=== PATIENT | male | born 1965 | race Caucasian/White ===

== ENCOUNTER 2020-09-19 22:02 | Inpatient (IN) | payer OTHER, SELFPAY ==
--- NOTE | ~2020-09-19 | CT_ITS ---
EXAMINATION: CTA chest PE protocol DATE: 09/20/2020 00:27 INDICATION: Chest pain and shortness of breath TECHNIQUE: Computed tomography angiography (CTA) of the chest was performed with 100 mL Omnipaque-350 intravenous contrast timed to evaluate the pulmonary arteries. Coronal maximum intensity projection 3D-reconstructions were created by the technologist. The dose-length product (DLP) was 449.55 mGy-cm. Automated exposure control and iterative reconstruction technique were employed. COMPARISON: None. FINDINGS: The pulmonary arteries are well-opacified. No pulmonary embolism is identified. Cardiomegal y is noted. There is smooth interlobular septal thickening in the lung bases. There are groundglass o pacities in the mid and lower lung zones. Trace right pleural effusion is present. There is no pneumo thorax. There are no pathologically enlarged thoracic lymph nodes. There is a 6 mm subpleural nodule in the left lower lobe on image 64. There is mild thoracic spondylosis. IMPRESSION: 1. Cardiomegaly with mild pulmonary edema. 2. 6 mm nodule of the left lower lobe, likely old granulomatous disease. Recommend follow-up CT in 6- 12 months. Reviewed, dictated and finalized at location A. IMPRESSION: 1. Cardiomegaly with mild pulmonary edema. 2. 6 mm nodule of the left lower lobe, likely old granulomatous disease. Recomm end follow-up CT in 6-12 months.
--- NOTE | ~2020-09-19 | XR_ITS ---
EXAMINATION: XR chest 1V portable INDICATION: Chest pain and shortness of breath TECHNIQUE: Portable AP chest at 2300 hours COMPARISON: 12/22/2017 FINDINGS: Cardiomegaly is noted. There are diffuse opacities throughout all lung zones. No pleural ef fusion or pneumothorax is identified. The visualized osseous structures are unremarkable. IMPRESSION: 1. Diffuse lung disease which could reflect pulmonary edema and/or pneumonia. 2. Cardiomegaly. Reviewed, dictated and finalized at location A.
[2020-09-19 22:06] VITALS: BP 112/82; PULSE 110; RESP 18; TEMP 37.1; O2SAT 100
--- NOTE | 2020-09-19 22:19 | ECG_ITS ---
Measurements Intervals [place] Rate: 106 P: 64 CA: 178 QRS: 67 QRSD: 98 T: 190 QT: 371 QTc: 495 Interpretive Statements SINUS TACHYCARDIA LEFT ATRIAL ENLARGEMENT DELAYED PRECORDIAL R/S TRANSITION T WAVE ABNORMALITY IN ANTEROLATERAL/INF LEADS- CONSIDER ISCHEMIA BASELINE ARTIFACT- II, III, AVR, AVF, V1, V4-V6 ABNORMAL ECG Electronically Signed On 09-20-2020 7:02:30 CDT by Toño Fabian D.O.
--- NOTE | 2020-09-19 22:31 | ED.SOB ---
HPI - SOB/Dyspnea General Chief Complaint: Shortness of Breath/Dyspnea <Uvaldo Good MD - Last Filed: 09/20/20 19:37> Stated Complaint: short of breath <Uvadlo Good MD - Last Filed: 09/20/20 19:37> Time Seen by Provider: 09/19/20 22:13 <Uvaldo Good MD - Last Filed: 09/20/20 19:37> History of Present Illness HPI Narrative: 54 yo male presents to the ED for SOB. He reports that he has been SOB for the past 2 days this is associated with burning pain in his chest. This may have started after he was spraying paint with improperly secured mask. He was previously diagnosed with asthma and had an albuterol inhaler. He has not used an inhaler in years. Additionally he reports nausea and chills 2 days ago, none now. <Uvaldo Good MD - Last Filed: 09/20/20 19:37> Related Data Home Medications: Home Medications Medication Instructions Recorded Confirmed sildenafil 09/20/20 <Uvaldo Good MD - Last Filed: 09/20/20 19:37> Allergies/Adverse Reactions: Allergies Allergy/AdvReac Type Severity Reaction Status Date / Time pollen extracts Allergy Unknown Verified 09/19/20 22:09 <Uvaldo Good MD - Last Filed: 09/20/20 19:37> Review of Systems Review of Systems: All systems reviewed & are unremarkable except as noted in HPI and below <Uvaldo Good MD - Last Filed: 09/20/20 19:37> Constitutional: Constitutional: Reports chills, Reports fatigue and Reports fever(s) <Uvaldo Good MD - Last Filed: 09/20/20 19:37> ENT: Denies dizziness <Uvaldo Good MD - Last Filed: 09/20/20 19:37> Cardiovascular: Cardiovascular: Reports chest pain and Denies radiating jaw, neck or arm pain <Uvaldo Good MD - Last Filed: 09/20/20 19:37> Respiratory: Respiratory: Reports cough and Reports dyspnea <Uvaldo Good MD - Last Filed: 09/20/20 19:37> Gastrointestinal: Gastrointestinal: Denies abdominal pain, Denies nausea and Denies vomiting <Uvaldo Good MD - Last Filed: 09/20/20 19:37> Genitourinary: Genitourinary: Reports no additional male genitourinary complaints <Uvaldo Good MD - Last Filed: 09/20/20 19:37> Musculoskeletal: Musculoskeletal: Denies back pain <Uvaldo Good MD - Last Filed: 09/20/20 19:37> Neurologic: Denies confusion, Denies dizziness and Denies weakness <Uvaldo Good MD - Last Filed: 09/20/20 19:37> [facility] Past Medical History Medical History: Medical History (Updated 09/20/20 @ 19:34 by Uvaldo Good MD) Asthma <Uvaldo Good MD - Last Filed: 09/20/20 19:37> Family History Family History: Family History (Updated 09/20/20 @ 03:28 by Felicia Saenz RN) Mother Brain cancer Cancer of heart Thyroid cancer Lung cancer Colon cancer Smoker Sibling Brain cancer Father Suicide and self-inflicted injury <Uvaldo Good MD - Last Filed: 09/20/20 19:37> Social History Social History: Social History Smoking packs per day: 0.5 Smoking cigarettes per day: 10.0 Smoking status: Current every day smoker Alcohol intake: never Substance use: never Gender identity (if verbalized by the patient): Male Spiritual care concerns: No <Uvaldo Good MD - Last Filed: 09/20/20 19:37> Exam Const: General: no acute distress and alert <Uvaldo Good MD - Last Filed: 09/20/20 19:37> Orientation/consciousness: patient oriented x3 <Uvaldo Good MD - Last Filed: 09/20/20 19:37> HENMT: Head: normal to inspection <Uvaldo Good MD - Last Filed: 09/20/20 19:37> Neck: Neck: normal visual inspection <Uvaldo Good MD - Last Filed: 09/20/20 19:37> Chest: Chest palpation & inspection: normal inspection of the chest and no tenderness <Uvaldo Good MD - Last Filed: 09/20/20 19:37> Resp: Effort & Inspection: normal respiratory effort <Uvaldo Good MD - Last Filed: 09/20/20 19:37> Auscul
[2020-09-19 22:36] VITALS: PULSE 107; RESP 18
[2020-09-19] MEDS: IPRATROPIUM BR 0.02% INH SOLN 0.5 MG/2.5 ML VIAL INHALATION (22:36)
[2020-09-19] MEDS: ALBUTEROL SULFATE NEB 2.5 MG/0.5 ML INH 5 MG INHALATION (22:36)
[2020-09-19 22:37] VITALS: PULSE 101; O2SAT 96
[2020-09-19 22:45] VITALS: PULSE 106; RESP 17
[2020-09-19 22:58] LABS: Basophils Percent Auto 0.3 % (0.2-1.2); Eosinophils Absolute Auto 0.1 K/mm3 (0-0.3); Eosinophils Percent Auto 0.6 % (0-4.4); Hematocrit 34.5 % (42.0-52.0); Hemoglobin 11.3 g/dL (14.0-18.0); Immature Granulocyte Absolute 0.05 K/mm3 (0.00-0.031); Immature Granulocyte Percent A 0.5 % (0-0.5); Lymphocytes Absolute Auto 1.27 K/mm3 (0.9-3.2); Lymphocytes Percent Auto 12.6 % (18.3-44.2); Mean Corpuscular HGB Conc 32.8 g/dl (32-36); Mean Corpuscular Hemoglobin 29.2 pg (26-34); Mean Corpuscular Volume 89.1 fl (80-100); Mean Platelet Volume 10.8 fl (7.4-10.4); Neutrophils Absolute Auto 7.6 K/mm3 (1.3-6.7); Platelet Count Result 182 k/mm3 (150-375); Red Blood Count 3.87 M/mm3 (4.6-6.20); Red Cell Distribution Width 14.6 % (11.5-14.5); White Blood Count 10.1 K/mm3 (4.5-10.0)
[2020-09-19 23:09] LABS: INR 1.1; Partial Thromboplastin Time 30.6 SECONDS (22.3-36.8)
[2020-09-19 23:11] LABS: Alanine Aminotransferase 23 U/L (4-50); Albumin Level 3.4 g/dL (3.5-5.1); Alkaline Phosphatase 62 U/L (38-126); Anion Gap 4 mmol/L (8-16); Aspartate Amino Transferase 21 U/L (17-59); Bilirubin,Total 0.9 mg/dL (0.2-1.3); Blood Urea Nitrogen 20 mg/dL (9-20); Calcium 9.1 mg/dL (8.4-10.2); Carbon Dioxide 28 mmol/L (22-30); Chloride 104 mmol/L (98-107); Estimated Glomerular Filt Rate > 60; Glucose 116 mg/dL (75-110); Potassium 4.1 mmol/L (3.4-5.0); Sodium 136 mmol/L (137-145)
[2020-09-19 23:26] VITALS: BP 109/72; PULSE 106; RESP 15; O2SAT 96
[2020-09-19 23:34] LABS: Troponin I 0.104 ng/mL (0.000-0.034)
[2020-09-20] VITALS (26 sets, daily range): BP systolic 93–120; BP diastolic 59–92; PULSE 98–114; RESP 16–31; TEMP 36.4–37.6; O2SAT 95–100
[2020-09-20] MEDS: ASPIRIN 81 MG CHEWABLE TABLET 324 MG PO
--- NOTE | 2020-09-20 | ECHO_ITS ---
Patient Info Name: Lewis Bonds Age: 54 years : 1965 Gender: Male Ht: 72 in Wt: 206 lbs BSA: 2.20 m2 HR: 104 bpm BP: 94 / 59 mmHg Heart Rhythm: Tachycardia Technical Quality: Good Exam Date: 09/20/2020 1:51 PM Exam Location: [facility] Pulmonary Exam Room: [facility] [place] Patient Status: Inpatient Admit Date: 09/20/2020 Staff Ordering Physician: Ketan Larios MD Administrative Services Officer: Ailyn Connolly RDCS Attending Provider: Ketan Larios MD Exam Type: CA echo doppler color flow Study Info Indications - chest pressure - nstemi cardiomegaly Complete two-dimensional, color flow and Doppler transthoracic echocardiogram is performed. Summary 1. Complete two-dimensional, color flow and Doppler transthoracic echocardiogram is performed. 2. Left ventricular chamber dimension is severely enlarged. 3. Left ventricular systolic function is severely reduced, estimated at 15-20%. 4. There is no increased left ventricular wall thickness. 5. The left ventricular diastolic function is grade III diastolic dysfunction. 6. Right ventricular chamber dimension is mildly enlarged. 7. Right ventricular systolic function is moderately reduced. 8. Left atrial chamber dimension is severely enlarged. 9. Right atrial chamber dimension is severely enlarged. 10. There is moderate mitral valve regurgitation. 11. There is mild tricuspid valve regurgitation. 12. Mild pulmonary hypertension, estimated pulmonary arterial systolic pressure is 44 mmHg. Left Ventricle Left ventricular chamber dimension is severely enlarged. Left ventricular systolic function is severely reduced, estimated at 15-20%. There is no increased left ventricular wall thickness. The left ventricular diastolic function is grade III diastolic dysfunction. Right Ventricle Right ventricular chamber dimension is mildly enlarged. Right ventricular systolic function is moderately reduced. Left Atria Left atrial chamber dimension is severely enlarged. Right Atria Right atrial chamber dimension is severely enlarged. Aortic Valve The aortic valve is probable trileaflet. There is no aortic valve stenosis. There is trace aortic valve regurgitation. Pulmonic Valve The pulmonic valve is not well visualized. There is trace pulmonic regurgitation. Mitral Valve The mitral valve has thickened leaflets. There is moderate mitral valve regurgitation. Tricuspid Valve The tricuspid valve leaflets are normal. There is mild tricuspid valve regurgitation. Mild pulmonary hypertension, estimated pulmonary arterial systolic pressure is 44 mmHg. Pericardium/Pleural The pericardium appears normal. There is no pericardial effusion. Inferior Vena Cava Normal inferior vena cava with no collapse upon inspiration consistent with elevated right atrial pressure, 10 mmHg. Aorta The aortic root size at the sinus of Valsalva is normal. Left Ventricular Outflow Tract Name Value Normal LVOT 2D LVOT Diameter 2.2 cm LVOT Doppler LVOT Peak Gradient 3 mmHg LVOT Mean Gradient 2 mmHg LVOT VTI
[2020-09-20 00:32] LABS: NT Pro B Type Natriuretic Pept 3520 pg/mL (5-100)
[2020-09-20] MEDS: DEXAMETHASONE SOD PHOS INJ 4 MG/ML VIAL 10 MG IV PUSH (00:35)
[2020-09-20] MEDS: ENOXAPARIN 100 MG/ML SYRINGE SUB-Q (00:39)
[2020-09-20 01:48] LABS: Barbiturate Screen Urine Negative (Negative); Benzodiazepines Screen Urine Negative (Negative)
--- NOTE | 2020-09-20 01:51 | PC.NURSE ---
spoke with house sup, patient is unable to sign out ama.
--- NOTE | 2020-09-20 01:51 | PC.NURSE ---
spoke with patient mother to give her an update.
[2020-09-20 01:58] LABS: Cannabinoid Screen Urine Negative (Negative); Cocaine Screen Urine Negative (Negative); Methadone Screen Urine Negative (Negative); Opiate Screen Urine Negative (Negative); Phencyclidine Screen Urine Negative (Negative)
[2020-09-20 02:12] LABS: Amphetamine Screen Urine Positive (Negative)
[2020-09-20 03:14] LABS: Troponin I 0.101 ng/mL (0.000-0.034)
--- NOTE | 2020-09-20 03:21 | ADMGEN ---
This patient, Lewis Bonds, was admitted to IMU Room 212-01 at 0315. Patient/family oriented to hospital policies and general routines including ID bracelet, bed and alarms, visiting hours, pain management, procedures, bathroom and other care routines, personal items, smoking policy, room service/diet, and visiting hours. Information on how to activate the Rapid Response Team has been discussed. Patient/Family are encouraged to report perceived risks to care and to ask questions if they do not understand what they are told or what they should do.
--- NOTE | 2020-09-20 04:55 | PM.IMHP ---
H&P: HPI History of Present Illness Date/Time: 09/20/20 04:55 Chief Complaint: chest pain and shortness of breath Narrative: 54 yo male presents to the ED for SOB and chest pain. he has been having these problems since past few days. he does have hx of asthma but gomes snot use any inhalers currenlty. he reports no feer, chills, abdominal pain, nausea, vomiting. he wast reated as asthma flare up with decadron, however evlauation noted him to have pulmonary edema on his chest xary with elevated BNP and also elevated troponin. he denies any heart problem in the past. he is admitted to the hospital for further evaluation and managmeent. he was givena dose of lasix which dropped his blood pressure. no cough reported Review of Systems Review of Systems: Narrative: - CONSTITUTIONAL: Denies weight loss, fever and chills. - HEENT: Denies changes in vision and hearing - RESPIRATORY: reprots SOB and denies cough. - CV: Denies palpitations and reprots CP. - GI: Denies abdominal pain, nausea, vomiting and diarrhea. - : Denies dysuria and urinary frequency. - MSK: Denies myalgia and joint pain. - SKIN: Denies rash and pruritus. - NEUROLOGICAL: Denies headache and syncope. - PSYCHIATRIC: Denies recent changes in mood. Denies anxiety and depression. All systems reviewed & are unremarkable except as noted in HPI and below PMFSH Family History Family History (Updated 09/20/20 @ 03:28 by Felicia Saenz RN) Mother Brain cancer Cancer of heart Thyroid cancer Lung cancer Colon cancer Smoker Sibling Brain cancer Father Suicide and self-inflicted injury Social History Social History Smoking packs per day: 0.5 Smoking cigarettes per day: 10.0 Smoking status: Current every day smoker Alcohol intake: never Substance use: never Gender identity (if verbalized by the patient): Male Spiritual care concerns: No Meds Home Medications and Allergies Allergies Allergy/AdvReac Type Severity Reaction Status Date / Time pollen extracts Allergy Unknown Verified 09/19/20 22:09 Vital Signs Vital Signs - 24 hr 09/19/20 22:06 09/19/20 22:36 09/19/20 22:37 Temperature 98.7 F Pulse Rate 110 H 107 H 101 H Respiratory Rate 18 18 Blood Pressure 112/82 Pulse Oximetry 100 96 09/19/20 22:45 09/19/20 23:26 09/20/20 00:30 Temperature Pulse Rate 106 H 106 H 106 H Respiratory Rate 17 15 21 H Blood Pressure 109/72 104/92 H Pulse Oximetry 96 95 09/20/20 01:00 09/20/20 01:11 09/20/20 01:26 Temperature Pulse Rate 108 H 106 H 111 H Respiratory Rate 31 H 19 30 H Blood Pressure 99/61 L Pulse Oximetry 98 99 99 09/20/20 01:30 09/20/20 01:45 09/20/20 02:00 Temperature Pulse Rate 109 H 108 H 106 H Respiratory Rate 23 H 22 H 18 Blood Pressure Pulse Oximetry 09/20/20 02:22 09/20/20 03:20 09/20/20 04:00 Temperature 99.6 F 97.8 F Pulse Rate 106 H 107 H Respiratory Rate 18 Blood Pressure 94/59 L Pulse Oximetry 99 Exam Narrative: Exam Narrative: GENERAL: The patient is well developed, not in acute distress HEENT: Nonicteric sclerae, PERRLA, EOMI. Oropharynx clear. Moist mucous membranes. Conjunctivae appear well perfused. CHEST: Chest wall is nontender. HEART: Regular rate and rhythm without murmur, rubs, or gallops LUNGS: Clear to auscultation bilaterally. no respiratory distress ABDOMEN: Soft, positive bowel sounds, non-tender, no organomegaly. SKIN: No rash, no excessive bruising, petechiae, or purpura. NEUROLOGIC: Cranial nerves II-XII intact, alert and oriented x 3, no gross motor deficits EXTREMITIES: no edema, cyanosis or clubbing H&P: Results Labs Labs: Short CBC 09/19/20 Range/Units 22:51 WBC 10.1 H (4.5-10.0) K/mm3 Hgb 11.3 L (14.0-18.0) g/dL Hct 34.5 L (42.0-52.0) % Plt Count 182 (150-375) k/mm3 [facility] 09/19/20 22:51 Sodium 136 L Potassium 4.1 Chloride 104 Carbon Dioxide 28 BUN 20 Creatinine 1.10 Glucose 116
[2020-09-20 05:56] LABS: Troponin I 0.086 ng/mL (0.000-0.034)
[2020-09-20] MEDS: ALBUTEROL SULFATE NEB 2.5 MG/0.5 ML INH 5 MG INHALATION ×3 (09:33→21:00)
[2020-09-20] MEDS: IPRATROPIUM BR 0.02% INH SOLN 0.5 MG/2.5 ML VIAL INHALATION ×3 (09:33→21:00)
[2020-09-20] MEDS: ASPIRIN 81 MG ENTERIC TABLET PO (10:05)
--- NOTE | 2020-09-20 10:16 | PM.IMPN ---
Progress Note: A&P Assessment and Plan (1) Non-ST elevation ID (NSTEMI): Code(s): I21.4 - Non-ST elevation (NSTEMI) myocardial infarction Status: Acute Assessment and Plan: Patient had chest pain, elevated tropes, inverted T-waves in the lateral leads -CTA showed cardiomegaly with vascular congestion -Pt was given aspirin and metoprolol on admission -lasix not given due to hypotension -Cardiology consulted, await their recommendations. Would recommend at least a stress test or possibly a cardiac cath since he has LUNA, EKG abnormalities, symptoms, and cardiomegaly/congestion on imaging. -Tops trending down. Lovenox given at midnight. Will await cardiology's recommendations on further need of anticoagulation. (2) Acute pulmonary edema: Code(s): J81.0 - Acute pulmonary edema Status: Acute Assessment and Plan: Lasix not given due to hypotension -pt continues to have LUNA but no orthopnea -Will see how his bp is throughout the day and may try a dose later (3) Asthma: Code(s): J45.909 - Unspecified asthma, uncomplicated Status: Acute Assessment and Plan: No wheezing on exam -continue albuterol and atrovent Time Spent With Patient Time with patient: 25 - 35 minutes Subjective Date/time seen: 09/20/20 10:16 Interval history: Pt is a 54 y/o old male who presented emergency room for chest pain. Patient was seen today and continues to have chest pain but it feels different now. He says it is more of a stabbing pain in his left chest worse with breathing in. His heavy/burning chest pain has resolved. He denies cough, leg swelling, orthopnea, headache, jaw pain, arm pain, nausea, vomiting, fevers or chills. Patient admits that he does methamphetamine occasionally but does not have a problem. 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 He denies needing any help for this. The last time he did meth was Friday night. He took a Cialis Friday night. He has not had his COVID vaccine and, to his knowledge, has not had COVID-19. He continues to have LUNA which is abnormal for him. He has not had any CP or LUNA in the past prior to this. Review of Systems Review of Systems: All systems reviewed & are unremarkable except as noted in HPI and below Exam Narrative: Exam Narrative: General: Well developed well nourished patient in NAD HEENT: normocephalic Neck: supple Neuro: Alert and oriented x4 CV:RRR. Telemetry shows normal sinus rhythm without abnormalities. No reproducible chest pain. Resp: Mild crackles in the bases. Please note a disposable scope was used during the exam which can lower sensitivity. Abd: Soft, non distended. No pain to palpation. Positive bowel sounds Extremities: No swelling, erythema, or pain to palpation. Objective Data Vital Signs Vital Signs: Vital Signs - 24 hr 09/19/20 22:06 09/19/20 22:36 09/19/20 22:37 Temperature 98.7 F Pulse Rate 110 H 107 H 101 H Respiratory Rate 18 18 Blood Pressure 112/82 Pulse Oximetry 100 96 09/19/20 22:45 09/19/20 23:26 09/20/20 00:30 Temperature Pulse Rate 106 H 106 H 106 H Respiratory Rate 17 15 21 H Blood Pressure 109/72 104/92 H Pulse Oximetry 96 95 09/20/20 01:00 09/20/20 01:11 09/20/20 01:26 Temperature Pulse Rate 108 H 106 H 111 H Respiratory Rate 31 H 19 30 H Blood Pressure 99/61 L Pulse Oximetry 98 99 99 09/20/20 01:30 09/20/20 01:45 09/20/20 02:00 Temperature Pulse Rate 109 H 108 H 106 H Respiratory Rate 23 H 22 H 18 Blood Pressure Pulse Oximetry 09/20/20 02:22 09/20/20 03:20 09/20/20 04:00 Temperature 99.6 F 97.8 F Pulse Rate 106 H 107 H Respiratory Rate 18 Blood Pressure 94/59 L Pulse Oximetry 99 09/20/20 06:00 09/20/20 08:00 09/20/20 09:35 Temperature 97.8 F Pulse Rate 99 98 98 Respiratory Rate 22 H 20 Blood Pressure 93/72 L Pulse Oximetry 100 98 09/20/20 09:46 Temperature
--- NOTE | 2020-09-20 11:07 | PM.CNCAR ---
Assessment and Plan Additional Plan 54-year-old man who had a significant occupational inhalational event last weekend on Friday is since then was having respiratory distress and chest discomfort with a a definite pleuritic quality to it which has seemingly to dissipate over the last several days. Following this event he has a small troponin rise as mentioned above his ECG has some nonspecific T-wave abnormalities. These symptoms and this clinical presentation is not suggestive of myocardial ischemia in my opinion and I do not believe I would recommend initiating an ischemia workup. Based on the appearance of his chest x-ray and echocardiogram will be performed and further recommendations will potentially be forthcoming after we review that study. Kye Carpenter MD [facility] History of Present Illness History of Present Illness Consult date/time: 09/20/20 11:07 Consult reason: chest pain Reason For Visit: NSTEMI, Acute Pulmonary Edema Narrative: This is a 54-year-old man I am seeing at the request of the hospitalist today because of some chest pain. The patient is not known to have any cardiac problems prior to this and really has a paucity of any medical problems other than history of some mild hypercholesterolemia for which in the past he was taking some niacin and also a history of some asthma for which in the past he had inhalers prescribed but does not use them recently. 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 He was using a latex based finishing product and felt poorly after that he states on Friday evening and significantly at Friday and Friday last week and he was having relatively severe chest pain that would occur with Inspiratory effort and was much worse in the supine position than it was in the seated position. Because of ongoing symptoms like this he came into the emergency room last evening for evaluation. The symptoms by the time he got here were significantly better than they were over the past weekend. Over the course of the evening they have essentially dissipated they are very mild at this time. His evaluation in the emergency room showed a nonspecific T-wave abnormality on his ECG with some lateral precordial T-wave inversions. Did not have any ST segment deviation. Troponin levels are elevated but flat at 0.1. He does not have any history of exertional symptomatology prior to this event that he is describing now. The patient's chest x-ray appears to show some enlargement of his cardiac silhouette. Review of Systems Constitutional: Constitutional: Reports no additional constitutional complaints Eyes: Eyes: Reports no additional eye complaints ENT: Reports system reviewed and no additional complaints, except as documented Cardiovascular: Cardiovascular: Reports as per HPI Respiratory: Respiratory: Reports dyspnea and Reports wheezing Gastrointestinal: Gastrointestinal: Reports no additional gastrointestinal complaints Musculoskeletal: Musculoskeletal: Reports no additional musculoskeletal complaints Integumentary/Breasts: Skin/Breast: Reports system reviewed and no additional complaints, except as docu Endocrine: Endocrine: Reports no additional endocrine complaints Hematologic/Lymphatic: Hematologic/Lymphatic: Reports no additional hematologic/lymphatic complaints Allergic/Immunologic: Allergic/Immunologic: Reports no additional allergic/immunologic complaints [facility] Family History Family History (Updated 09/20/20 @ 03:28 by Felicia Saenz RN) Mother Brain cancer Cancer of heart Thyroid cancer Lung cancer Colon cancer Smoker Sibling Brain cancer Father Suicide and self-inflicted injury So
[2020-09-20] MEDS: NICOTINE (*PBKC) 14 MG PATCH 1 PATCH TRANSDERM (18:49)
[2020-09-21] VITALS: BP 107/76; PULSE 108; PULSE 110; RESP 18; TEMP 36.6; O2SAT 100
[2020-09-21 02:00] VITALS: PULSE 108
[2020-09-21 02:31] VITALS: PULSE 97; RESP 18
[2020-09-21] MEDS: ALBUTEROL SULFATE NEB 2.5 MG/0.5 ML INH 5 MG INHALATION (02:31)
[2020-09-21] MEDS: IPRATROPIUM BR 0.02% INH SOLN 0.5 MG/2.5 ML VIAL INHALATION (02:31)
[2020-09-21 02:42] VITALS: PULSE 98; RESP 18
[2020-09-21 04:00] VITALS: BP 125/60; PULSE 104; PULSE 109; RESP 18; TEMP 36.6; O2SAT 98
[2020-09-21 05:10] LABS: Hematocrit 35.5 % (42.0-52.0); Hemoglobin 11.5 g/dL (14.0-18.0); Mean Corpuscular HGB Conc 32.4 g/dl (32-36); Mean Corpuscular Hemoglobin 29.3 pg (26-34); Mean Corpuscular Volume 90.3 fl (80-100); Platelet Count Result 166 k/mm3 (150-375); Red Blood Count 3.93 M/mm3 (4.6-6.20); Red Cell Distribution Width 14.7 % (11.5-14.5); White Blood Count 10.3 K/mm3 (4.5-10.0)
[2020-09-21 05:39] LABS: Anion Gap 5 mmol/L (8-16); Blood Urea Nitrogen 16 mg/dL (9-20); Calcium 9.1 mg/dL (8.4-10.2); Carbon Dioxide 26 mmol/L (22-30); Chloride 106 mmol/L (98-107); Estimated Glomerular Filt Rate > 60; Glucose 129 mg/dL (75-110); Magnesium 2.1 mg/dL (1.6-2.3); Potassium 3.6 mmol/L (3.4-5.0); Sodium 137 mmol/L (137-145)
[2020-09-21 06:00] VITALS: PULSE 107
--- NOTE | 2020-09-21 08:14 | PM.PNCARD ---
Progress Note: A&P Additional Plan 54-year-old man with: Newly diagnosed severe dilated cardiomyopathy. Today I would recommend starting treatment with carvedilol, Entresto and spironolactone. I would recommend contacting the [facility] airport representative and arranging for a Life Vest. I would also recommend arranging for a coronary angiogram to during this hospitalization probably tomorrow since he is not in greatly decompensated volume overload at this time. Despite this long thoughtful discussion the patient wants no part of any further hospital stay or treatment or evaluation. He understands he is at risk for lethal arrhythmias but despite all this he indicates his desire to sign out against medical advice. 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 I wished him well I do not intend to prescribe any of his medications since we are ending a relationship and follow-up in our office will not be anticipated Kye Carpenter MD [facility] Subjective Date/time seen: Date of service: 09/21/20 08:14 Interval history: Follow-up visit in this 54-year-old man with: Shortness of breath starting last week and through through the weekend and a prompting admission to the hospital. Chest x-ray demonstrated evidence of enlarged cardiac silhouette. Echocardiogram done yesterday unfortunately shows a profound four-chamber dilated cardiomyopathy. Long discussion with the patient in the room this morning about the implications of this and the need for initiating heart failure medication, arranging for a Life Vest device and arranging for coronary angiography to determine if this is an ischemic versus nonischemic process. After lengthy discussion the patient understands all of this and indicates his intention to leave the hospital against medical advice. Exam Const: General: comfortable and no acute distress HENMT: Mouth: Yes moist mucous membranes Eyes: Sclera: sclerae normal Pupils: Equal, round and reactive pupils present Neck: Neck: no JVD Thyroid: thyroid normal Resp: Effort & Inspection: normal respiratory effort Other: Bibasilar crackles Cardio: Rate: regular rate Rhythm: regular rhythm Other: PMI displaced summation gallop present no murmur GI: GI Palp: Yes Soft to palpation Auscultation: normal bowel sounds Skin: General skin exam: normal color Neuro: Cognition (Neuro): normal cognition Extrem: General: normal to inspection Other: No pitting edema Objective Data Vital Signs Vital Signs: Vital Signs - 24 hr 09/20/20 09:35 09/20/20 09:46 09/20/20 10:00 Temperature Pulse Rate 98 99 101 H Respiratory Rate 20 20 Blood Pressure Pulse Oximetry 98 09/20/20 12:00 09/20/20 14:00 09/20/20 14:17 Temperature 36.5 C Pulse Rate 104 H 104 H 104 H Respiratory Rate 20 18 Blood Pressure 104/60 Pulse Oximetry 99 09/20/20 14:28 09/20/20 16:00 09/20/20 18:00 Temperature 36.4 C L Pulse Rate 106 H 107 H 114 H Respiratory Rate 18 16 Blood Pressure 117/67 Pulse Oximetry 100 09/20/20 20:00 09/20/20 21:01 09/20/20 21:14 Temperature 36.4 C Pulse Rate 112 H 104 H 101 H Respiratory Rate 18 18 18 Blood Pressure 120/59 L Pulse Oximetry 09/20/20 21:23 09/20/20 21:59 09/21/20 00:00 Temperature 36.4 C 36.6 C Pulse Rate 110 H 109 H 108 H Respiratory Rate 18 18 Blood Pressure 120/59 L 107/76 Pulse Oximetry 100 09/21/20 02:00 09/21/20 02:31 09/21/20 02:42 Temperature Pulse Rate 108 H 97 98 Respiratory Rate 18 18 Blood Pressure Pulse Oximetry 09/21/20 04:00 09/21/20 06:00 Temperature 36.6 C Pulse Rate 104 H 107 H Respiratory Rate 18 Blood Pressure 125/60 Pulse Oximetry 98 Intake/Output Intake/Output: Intake & Output 09/18/20 09/19/20 09/20/20 09/21/20 23:59 23:59 23:59 23:59 Intake Total 1020 250 Output Total 175 400 Balance 845 -150 Meds/Results Medications: Active Medica
--- NOTE | 2020-09-21 08:28 | P.PNCROSS_ITS ---
Event Note Event Note Event Note: I was notified by the nursing staff that the patient left AMA after speaking wi th Cardiology. He was not seen 09/21/20.
--- NOTE | 2020-09-21 08:28 | PM.EVENT ---
Event Note Event Note Event Note: I was notified by the nursing staff that the patient left AMA after speaking with Cardiology. He was not seen 09/21/20.
--- NOTE | 2020-09-21 09:30 | PC.NURSE ---
Patient notified of risks of leaving AMA. [ kassi caballero] notified. Follow up instructions given to patient. Patient signed AMA form.
== END 2020-09-21 08:24 | disposition left against medical advice (07) | DRG 205 ==
LOC: ANHED 09-20 01:04 → ANHIMU 09-20 04:59
PROVIDERS: Emergency Medicine; Admitting Provider Internal Medicine; Emergency Provider Emergency Medicine; Visit Provider Physician Assistant
DX: I42.0 Dilated cardiomyopathy (principal); Z20.822 Contact with and (suspected) exposure to COVID-19; J81.0 Acute pulmonary edema; E78.00 Pure hypercholesterolemia, unspecified; J45.909 Unspecified asthma, uncomplicated; F17.210 Nicotine dependence, cigarettes, uncomplicated
CPT/HCPCS: 36415; 71045; 71275; 80048; 80053; 80307; 83735; 83880; 84484; 85025; 85027; 85610; 85730; 87040; 93005; 93306; 94640; 96372; 96374; 99291; A9270; C9803; J1100; J1650; Q9967; U0003; U0005

== ENCOUNTER 2020-10-11 11:54 | Emergency (ER) | payer OTHER, SELFPAY ==
--- NOTE | ~2020-10-11 | XR_ITS ---
XR chest 2V 10/11/2020 12:15 Indication: Shortness of breath. CHF. Procedure: 2 view chest Comparison: 09/19/2020 Findings: Cardiomegaly. Left basilar airspace disease. No significant pleural effusion or pneumothora x. No edema. No acute osseous abnormality. Impression: 1: Left basilar airspace disease which may represent atelectasis or pneumonia. 2: Cardiomegaly. Reviewed, dictated and finalized at location B. Impression: 1: Left basilar airspace disease which may represent atelectasis or pneumonia. 2: Cardiomegaly.
[2020-10-11 12:01] VITALS: BP 96/62; PULSE 53; RESP 12; TEMP 36.9; O2SAT 99
--- NOTE | 2020-10-11 12:03 | ECG_ITS ---
Measurements Intervals [place] Rate: 106 P: 66 [place]: 174 QRS: 69 QRSD: 102 T: 187 QT: 355 QTc: 473 Interpretive Statements SINUS TACHYCARDIA VENTRICULAR PREMATURE COMPLEX LEFT ATRIAL ENLARGEMENT INCOMPLETE RIGHT BUNDLE BRANCH BLOCK T WAVE ABNORMALITY IN ANTEROLATERAL LEADS- CONSIDER ISCHEMIA ABNORMAL ECG Electronically Signed On 10-11-2020 13:53:37 CDT by Toño Fabian D.O.
--- NOTE | 2020-10-11 12:51 | ED.SOB ---
HPI - SOB/Dyspnea General Chief Complaint: Shortness of Breath/Dyspnea Stated Complaint: ABD PAIN/SOB/FEVER Source: patient and RN notes reviewed Limitations: no limitations History of Present Illness HPI Narrative: The noncompliant unvaccinated patient--a recent ex-smoker/ex drinker with dilated cardiomyopathy[EF <15%]-- presents with the two complaints of nocturnal dyspnea and epigastric pain. Patient states he recently left [facility] AMA [after discussion of need for vest, AICD ] and checked himself into [facility]. He has been home from the hospital for about a month but not picked up his prescriptions. He complains of fatigue, chills, nonproductive cough, nighttime PND and has some associated epigastric discomfort. No fever measured, sputum changes, precordial chest pain; no loss of taste/smell, vomiting/diarrhea, rash, calf pain/edema Vital signs remarkable for BP 96[prior inpatient systolic 110s], pulse 53 pulse ox 99, afebrile; screening chest x-ray shows new left-sided infiltrate versus atelectasis, EKG is sinus tach with nonspecific changes. Patient advised to go to hospital and he declines AMA. Discussed then will reissue prescriptions to local pharmacy. Related Data Home Medications Medication Instructions Recorded Confirmed atorvastatin 10/11/20 Allergies Allergy/AdvReac Type Severity Reaction Status Date / Time pollen extracts Allergy Unknown Verified 09/19/20 22:09 Review of Systems Review of Systems: Narrative: General/Constitutional: No weight loss, POSSIBLE fever Eyes: N0: Redness,discharge Ears/Nose/Throat: No: Epistaxis,ear discharge Respiratory: Denies: Hemoptysis Gastrointestinal: No Vomiting, Bleeding-rectal Skin: No Lumps, eruption Neurologic: No Focal Weakness,Sz Hematologic: Denies: Petechiae/Purpura Psychiatric: No: Suicida ideationl All Other Systems: Reviewed and Negative [facility] Past Medical History Medical History (Updated 10/11/20 @ 13:06 by Hernandez Wang MD) Asthma Family History Family History (Updated 09/20/20 @ 03:28 by Felicia Saenz RN) Mother Brain cancer Cancer of heart Thyroid cancer Lung cancer Colon cancer Smoker Sibling Brain cancer Father Suicide and self-inflicted injury Social History Social History Smoking packs per day: 0.5 Smoking cigarettes per day: 10.0 Smoking status: Current every day smoker Alcohol intake: never Substance use: never Gender identity (if verbalized by the patient): Male Spiritual care concerns: No Comments At time of signature, agree with nursing past medical, surgical, social and family history. There is no relevant family history pertinent to the presenting complaint Exam Narrative: Exam Narrative: General Appearance: Chronically ill appearing, No distress EYE: PERRLA, Conjunctiva clear Ears: External ear normal Nose: Normal nose Mouth/Throat: Normal appearing, Normal lips Neck: Supple Respiratory: Airway patent, No respiratory distress, increased AP diameter, diffuse decreased BS Cardiovascular: RRR, you have displaced, 2/6 DEMETRA Abdomen: Soft, mild epigastric tenderness, no surgical signs, obese versus hepatomegaly Musculoskeletal: Full ROM, no dependent edema Skin: Warm, Dry Neurological: A&O x3, CN II-X intact Psychiatric: Normal mood, Normal affect Course Course Emergency Course: Films visualized, interpreted by radiologist, agree, ABnormal see report EKG: Sinus tachycardia 106, LAD, incomplete RBBB, inferior lateral T wave abnormalities with flipped T's V4-6, I-II Vital Signs Vital signs: Vital Signs Temperature 98.5 F 10/11/20 12:01 Pulse Rate 53 L 10/11/20 12:01 Respiratory Rate 12 10/11/20 12:01 Blood Pressure 96/62 L 10/11/20 12:01 Pulse Oximetry 99 10/11/20 12:01 Temperature 98.5 F 10/11/20 12:01 Pulse Rate 53 L 10/11/20 12:01 Respiratory Rate 12 10/11/20 12:01 Blood Pressure 96/62 L 10/11/20 12:01 Pulse Oximetry 99
== END 2020-10-11 13:14 | disposition left against medical advice (07) ==
PROVIDERS: Emergency Provider Emergency Medicine; PCP Family Medicine
DX: R06.00 Dyspnea, unspecified (principal); R06.9 Unspecified abnormalities of breathing; Z20.822 Contact with and (suspected) exposure to COVID-19; I42.0 Dilated cardiomyopathy; J45.909 Unspecified asthma, uncomplicated; R91.8 Other nonspecific abnormal finding of lung field; Z91.14 Patient's other noncompliance with medication regimen; R00.0 Tachycardia, unspecified; I49.3 Ventricular premature depolarization; I45.10 Unspecified right bundle-branch block; R94.31 Abnormal electrocardiogram [ECG] [EKG]; Z87.891 Personal history of nicotine dependence
CPT/HCPCS: 71046; 87426; 93005; 99213; C9803; G0463

== ENCOUNTER 2020-10-24 20:55 | Emergency (ER) | payer OTHER, SELFPAY ==
--- NOTE | ~2020-10-24 | XR_ITS ---
EXAMINATION: XR chest 2V DATE: 10/24/2020 21:49 INDICATION: Congestive heart failure exacerbation. TECHNIQUE: Frontal and lateral views of the chest were obtained. COMPARISON: Chest 2 views 10/11/2020, chest CT 09/20/2020 FINDINGS: There is no pneumonia, pleural effusion, or pneumothorax. Cardiomegaly is noted. IMPRESSION: 1. Cardiomegaly. Reviewed, dictated and finalized at location A. IMPRESSION: 1. Cardiomegaly.
[2020-10-24 21:18] VITALS: BP 123/79; PULSE 102; RESP 16; TEMP 36.6; O2SAT 99
--- NOTE | 2020-10-24 21:27 | ECG_ITS ---
Measurements Intervals [place] Rate: 102 P: 35 [place]: 168 QRS: 78 QRSD: 96 T: 260 QT: 316 QTc: 412 Interpretive Statements SINUS TACHYCARDIA LEFT ATRIAL ENLARGEMENT INCOMPLETE RIGHT BUNDLE BRANCH BLOCK CANNOT RULE OUT SEPTAL INFARCT, AGE INDETERMINATE BORDERLINE T WAVE ABNORMALITY- DIFFUSE LEADS ABNORMAL ECG Electronically Signed On 10-25-2020 5:42:42 CDT by Toño Fabian D.O.
[2020-10-24 21:49] LABS: Basophils Percent Auto 0.4 % (0.2-1.2); Eosinophils Absolute Auto 0.1 K/mm3 (0-0.3); Eosinophils Percent Auto 1.1 % (0-4.4); Hematocrit 33.1 % (42.0-52.0); Hemoglobin 10.6 g/dL (14.0-18.0); Immature Granulocyte Absolute 0.03 K/mm3 (0.00-0.031); Immature Granulocyte Percent A 0.4 % (0-0.5); Immature Platelet Fraction Pct 8.3 % (0.9-11.2); Lymphocytes Percent Auto 14.7 % (18.3-44.2); Mean Corpuscular Hemoglobin 28.7 pg (26-34); Mean Corpuscular Volume 89.7 fl (80-100); Monocytes Absolute Auto 0.7 K/mm3 (0.1-0.6); Monocytes Percent Auto 8.7 % (2.6-8.5); Neutrophils Absolute Auto 5.6 K/mm3 (1.3-6.7); Neutrophils Percent Auto 74.7 % (45.5-73.1); Platelet Count Result 108 k/mm3 (150-375); Red Blood Count 3.69 M/mm3 (4.6-6.20); Red Cell Distribution Width 17.2 % (11.5-14.5); White Blood Count 7.5 K/mm3 (4.5-10.0)
[2020-10-24 21:58] LABS: Anion Gap 6 mmol/L (8-16); Blood Urea Nitrogen 17 mg/dL (9-20); Calcium 9.2 mg/dL (8.4-10.2); Carbon Dioxide 28 mmol/L (22-30); Chloride 103 mmol/L (98-107); Estimated CRCL calculation 83 ml/min; Estimated Glomerular Filt Rate > 60; Glucose 122 mg/dL (75-110); Potassium 4.4 mmol/L (3.4-5.0); Sodium 137 mmol/L (137-145)
[2020-10-24 21:59] LABS: INR 1.3; Prothrombin Time 16.3 Seconds (11.1-14.7)
[2020-10-24 22:00] LABS: Partial Thromboplastin Time 26.5 SECONDS (22.3-36.8)
[2020-10-24 22:10] LABS: NT Pro B Type Natriuretic Pept 4490 pg/mL (5-100); Troponin I 0.027 ng/mL (0.000-0.034)
--- NOTE | 2020-10-24 23:14 | ED.GENADULT ---
HPI - General Adult General Chief complaint: Unspecified Stated complaint: edema legs, hx chf Time Seen by Provider: 10/24/20 23:13 Source: patient Mode of arrival: ambulatory Limitations: no limitations History of Present Illness HPI narrative: Patient is a 54-year-old male complaining of increasing bilateral lower extremity edema and scrotal edema bilaterally that started 3 days ago. Patient denies any shortness of breath. Patient states that he was recently diagnosed with congestive heart failure last month. Patient also states that he was recently discharged after being dated for 2 weeks due to congestive heart failure exacerbation, was told that he had a ejection fraction of 13 to 15%. Patient states that he has never had scrotal edema or bilateral lower extremity edema with his congestive heart failure, usual symptoms when he was admitted was shortness of breath and increased abdominal distention, so this is new to him. Patient denies any chest pain, abdominal pain, nausea, vomiting, testicular pain, fever or chills. Related Data Home Medications Medication Instructions Recorded Confirmed atorvastatin 10/11/20 Allergies Allergy/AdvReac Type Severity Reaction Status Date / Time pollen extracts Allergy Unknown Verified 10/24/20 23:43 Review of Systems Review of Systems: All systems reviewed & are unremarkable except as noted in HPI and below Constitutional: Constitutional: Denies body ache(s), Denies chills, Denies excessive sweating, Denies fatigue, Denies fever(s), Denies headache(s), Denies lethargy, Denies malaise, Denies weakness and Denies weight loss Eyes: Eyes: Denies blurry vision, Denies change in vision and Denies loss of vision ENT: Denies dizziness, Denies ear discharge, Denies headache(s), Denies lip swelling, Denies epistaxis, Denies nasal congestion, Denies neck pain, Denies throat swelling and Denies tongue swelling Cardiovascular: Cardiovascular: Denies chest pain, Denies chest pain at rest, Denies chest pain with activity, Denies diaphoresis, Denies rapid heart rate, Denies irregular heart rhythm, Denies lightheadedness and Denies palpitations Respiratory: Respiratory: Denies chest congestion, Denies cough and Denies hemoptysis Gastrointestinal: Gastrointestinal: Denies abdominal pain, Denies melena, Denies hematochezia, Denies diarrhea, Denies nausea, Denies vomiting and Denies hematemesis Musculoskeletal: Musculoskeletal: Denies abnormal gait, Denies deformity, Denies joint swelling, Denies limited range of motion, Denies neck pain and Denies numbness Neurologic: Denies Abnormal speech present, Denies abnormal gait, Denies confusion, Denies dizziness, Denies headache(s), Denies focal weakness, Denies loss of vision, Denies numbness, Denies Other visual disturbances, Denies Sensory deficit (Neuro) and Denies weakness Psychiatric: Psychiatric: Denies confusion, Denies depression, Denies auditory hallucinations, Denies homicidal ideation and Denies suicidal ideation Endocrine: Endocrine: Denies cold intolerance, Denies excessive sweating, Denies fatigue, Denies heat intolerance and Denies palpitations Hematologic/Lymphatic: Hematologic/Lymphatic: Denies easy bleeding and Denies easy bruising Allergic/Immunologic: Allergic/Immunologic: Denies lip swelling, Denies throat swelling and Denies tongue swelling PMFSH Past Medical History Medical History Asthma Family History Family History Mother Brain cancer Cancer of heart Thyroid cancer Lung cancer Colon cancer Smoker Sibling Brain cancer Father Suicide and self-inflicted injury Social History Social History Smoking packs per day: 0.5 Smoking cigarettes per day: 10.0 Smoking status: Current every day smoker Alcohol intake: never Substance use: never Gender yeimy
[2020-10-24 23:41] VITALS: BP 104/72; PULSE 100; RESP 17; O2SAT 100
[2020-10-24 23:43] VITALS: PULSE 100
[2020-10-24] MEDS: FUROSEMIDE INJ 40 MG/4 ML VIAL IV PUSH (23:48)
[2020-10-25 00:17] VITALS: BP 111/81; PULSE 102; RESP 15; O2SAT 100
== END 2020-10-25 00:18 | disposition home or self-care (01) ==
PROVIDERS: Emergency Provider Emergency Medicine; PCP Family Medicine
DX: I50.9 Heart failure, unspecified (principal); I42.9 Cardiomyopathy, unspecified; R60.0 Localized edema; N50.89 Other specified disorders of the male genital organs; J45.909 Unspecified asthma, uncomplicated; F17.210 Nicotine dependence, cigarettes, uncomplicated
CPT/HCPCS: 36415; 71046; 80048; 83880; 84484; 85025; 85055; 85610; 85730; 93005; 96374; 99284; J1940

== ENCOUNTER 2021-01-01 11:41 | Emergency (ER) | payer OTHER, SELFPAY ==
[2021-01-01 11:52] VITALS: BP 100/75; PULSE 109; RESP 16; TEMP 36.4; O2SAT 100
--- NOTE | 2021-01-01 12:08 | ED.GENADULT ---
HPI - General Adult General Chief complaint: Extremity Problem,Nontraumatic Stated complaint: arm pain Source: patient Mode of arrival: ambulatory Limitations: no limitations History of Present Illness HPI narrative: Patient is a 55-year-old male who presents to the [facility] via POV for evaluation of a skin problem on right upper arm that began approximately 1 week ago. He reports the area is warm, erythematous, and painful. Remaining still resolved pain and movement worsens pain. Denies Using OTC Meds for Symptoms. Of note, he reports he was hospitalized and on an IV drip of dobutamine for blood pressure secondary to CHF. He reports the IV pump kept beeping and the nurse wrapped his IV with a bandage to prevent it from stopping. He admits that a hospital RN informed him he had phlebitis. Related Data Home Medications Medication Instructions Recorded Confirmed atorvastatin 10/11/20 sertraline 50 mg PO DAILY 01/01/21 01/01/21 Allergies Allergy/AdvReac Type Severity Reaction Status Date / Time pollen extracts Allergy Unknown Verified 01/01/21 12:11 Review of Systems Review of Systems: GENERAL: Well-appearing, well-nourished, and in no acute distress. HEAD: Normocephalic, atraumatic. No facial swelling appreciated. EYES: PERRLA and EOMI. No evidence of erythema, swelling, or drainage. ENT: Nares clear, no rhinorrhea or epistaxis.Mucous membranes moist and pink. Uvula is midline without erythema and swelling. No evidence of obstruction, petechial rash, cobblestoning, lesions, ulcers, erythema, swelling, exudates, peritonsillar abscess, tenting, or drooling. Breath odor and voice normal. NECK: Supple. No Lymphadenopathy or nuchal rigidity appreciated. CHEST: Bilateral lung jean are clear to auscultation. No respiratory distress. No evidence of cough or pleuritic cp upon examination. HEART: Regular rate and rhythm. No murmur, gallop, or rub heard. EXTREMITIES: Normal range of motion. No edema. SKIN: Warm, dry. No evidence of cellulitis, abscess, streaking, induration, abrasions/lacerations, petechiae, hematoma, contusion, drainage, or bleeding. Left upper arm superficial vein and surrounding tissue appears irritated, erythematous, warm, and tender to palpation. NEURO: No focal deficits. Alert and oriented x3. [facility] Past Medical History Medical History (Updated 01/01/21 @ 12:45 by SHARYN Mckeon, ) Acute pulmonary edema Asthma Non-ST elevation [place] (NSTEMI) Family History Family History Mother Brain cancer Cancer of heart Thyroid cancer Lung cancer Colon cancer Smoker Sibling Brain cancer Father Suicide and self-inflicted injury Social History Social History Smoking packs per day: 0.5 Smoking cigarettes per day: 10.0 Smoking status: Current every day smoker Alcohol intake: never Substance use: never Gender identity (if verbalized by the patient): Male Spiritual care concerns: No Comments I have reviewed and agree with the patient's past medical, surgical, social, and family hx as documented by the RN. There is no relevant family history pertinent to the presenting complaint. Course Vital Signs Vital signs: Vital Signs Temperature 97.6 F 01/01/21 11:52 Pulse Rate 109 H 01/01/21 11:52 Respiratory Rate 16 01/01/21 11:52 Blood Pressure 100/75 01/01/21 11:52 Pulse Oximetry 100 01/01/21 11:52 Temperature 97.6 F 01/01/21 11:52 Pulse Rate 109 H 01/01/21 11:52 Respiratory Rate 16 01/01/21 11:52 Blood Pressure 100/75 01/01/21 11:52 Pulse Oximetry 100 01/01/21 11:52 Medical Decision Making Differential Diagnosis Differential Diagnosis: Contact/allergic dermatitis, atopic dermatitis, psoriasis, cellulitis, tinea infection, parasite infection, shingles, phlebitis Medical Records Medical records reviewed:
== END 2021-01-01 12:25 | disposition home or self-care (01) ==
PROVIDERS: Emergency Provider Nurse Practitioner Family; PCP Family Medicine
DX: T80.1XXA Vascular complications following infusion, transfusion and therapeutic injection, initial encounter (principal); I80.9 Phlebitis and thrombophlebitis of unspecified site; F17.210 Nicotine dependence, cigarettes, uncomplicated; J45.909 Unspecified asthma, uncomplicated; I25.2 Old myocardial infarction; I50.9 Heart failure, unspecified
CPT/HCPCS: 99212; G0463

== ENCOUNTER 2021-01-06 07:34 | Emergency (ER) | payer OTHER, SELFPAY ==
[2021-01-06] VITALS (8 sets, daily range): BP systolic 84–110; BP diastolic 64–90; PULSE 98–106; RESP 14–28; TEMP 36.2; O2SAT 96–100
--- NOTE | ~2021-01-06 | XR_ITS ---
EXAMINATION: XR chest 2V DATE: 01/06/2021 08:05 INDICATION: Shortness of breath TECHNIQUE: PA and lateral views of the chest were obtained. COMPARISON: 10/24/[address] dated 09/20/2020 FINDINGS: Moderate cardiomegaly. No focal airspace opacities, pulmonary edema, pleural effusion or pneumothorax . Mild scattered degenerative skeletal changes in the spine and at both shoulders. IMPRESSION: 1. Moderate cardiomegaly. No other acute cardiopulmonary disease. Reviewed, dictated and finalized at location A.
--- NOTE | ~2021-01-06 | XR_ITS ---
EXAMINATION: XR abdomen/kub 1V DATE: 01/06/2021 08:05 INDICATION: Constipation, nausea and vomiting TECHNIQUE: A supine view of the abdomen on 2 radiographs was obtained. COMPARISON: None. FINDINGS: Moderate amount of stool at the splenic flexure of the colon with small amounts of stool scattered th roughout the remainder of the colon. Small amount of gas scattered through a several loops of nondila edvin small bowel in the midabdomen. No dilated gas-filled loops of bowel to suggest obstruction. No fr ee intraperitoneal gas. A few phleboliths in the right hemipelvis. Visualized lung bases are clear. IMPRESSION: 1. Nonobstructive bowel gas pattern with moderate amount of stool at the splenic flexure of the colon . Reviewed, dictated and finalized at location A. IMPRESSION: 1. Nonobstructive bowel gas pattern with moderate amount of stool at the spleni c flexure of the colon.
--- NOTE | 2021-01-06 07:53 | ECG_ITS ---
Measurements Intervals [place] Rate: 100 P: 53 [place]: 187 QRS: 60 QRSD: 113 T: 156 QT: 370 QTc: 479 Interpretive Statements SINUS TACHYCARDIA VENTRICULAR PREMATURE COMPLEX LEFT ATRIAL ENLARGEMENT INCOMPLETE RIGHT BUNDLE BRANCH BLOCK CANNOT RULE OUT SEPTAL INFARCT, AGE INDETERMINATE BORDERLINE T WAVE ABNORMALITY- DIFFUSE LEADS ABNORMAL ECG Electronically Signed On 01-06-2021 8:30:36 CDT by Toño Fabian D.O.
--- NOTE | 2021-01-06 07:58 | ED.GENADULT ---
HPI - General Adult General Chief complaint: Shortness of Breath/Dyspnea Stated complaint: sob Time Seen by Provider: 01/06/21 07:35 History of Present Illness HPI narrative: Patient is a 55-year-old male who presents the ER with multiple complaints. His first complaint is that he is short of breath. He is short of breath if he tries to exert himself at all. He has history of dilated cardiomyopathy with low ejection fraction. He is supposed to be wearing a LifeVest which she forgot at home. Patient reports that he has had an 8 pound weight gain over the last 2 days. He reports compliance with his diuretic medications at home. Patient is also reporting abdominal discomfort with nausea and vomiting. The discomfort is diffuse and related to the fact is constipated and just pooping aggie. Pain is not reproducible and he has found no alleviating factors. He was prescribed MiraLAX but reports he quit taking it. Patient also endorses central chest pressure that began around midnight. He reports it is worsened if he receives a hug or is touched. 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 However patient was recently admitted to [facility] for heart failure and was on a dobutamine drip that caused him to develop some thrombophlebitis. Related Data Home Medications Medication Instructions Recorded Confirmed sertraline 50 mg PO DAILY 01/01/21 01/01/21 furosemide 80 mg PO BID 01/06/21 metoprolol succinate 25 mg PO DAILY 01/06/21 Allergies Allergy/AdvReac Type Severity Reaction Status Date / Time pollen extracts Allergy Unknown Verified 01/06/21 07:43 Review of Systems Review of Systems: All systems reviewed & are unremarkable except as noted in HPI and below Constitutional: Constitutional: Denies chills, Reports fatigue, Denies fever(s) and Reports weakness Cardiovascular: Cardiovascular: Reports chest pain, Denies rapid heart rate and Denies radiating jaw, neck or arm pain Respiratory: Respiratory: Denies cough, Reports dyspnea and Denies wheezing Gastrointestinal: Gastrointestinal: Reports abdominal pain, Reports bloating, Reports constipation, Reports nausea and Reports vomiting [facility] Past Medical History Medical History (Updated 01/06/21 @ 10:57 by Ramon Dawson MD) Acute pulmonary edema Asthma Depression Non-ST elevation [place] (NSTEMI) Family History Family History Mother Brain cancer Cancer of heart Thyroid cancer Lung cancer Colon cancer Smoker Sibling Brain cancer Father Suicide and self-inflicted injury Social History Social History Smoking packs per day: 0.5 Smoking cigarettes per day: 10.0 Smoking status: Current every day smoker Alcohol intake: never Substance use: never Gender identity (if verbalized by the patient): Male Spiritual care concerns: No Exam Narrative: GENERAL: Chronically ill-appearing, well-nourished, and in no acute distress. HEAD: Normocephalic, atraumatic. ENT: Mucous membranes moist. CHEST: Clear to auscultation. No respiratory distress. HEART: Regular rate and rhythm. Normal peripheral pulses. ABDOMEN: Soft, nontender, nondistended. EXTREMITIES: Normal range of motion. 1+ edema. SKIN: Warm, dry, no rash. NEURO: Alert and oriented x3. PSYCH: Normal mood and affect. Course Reevaluation(s) Reevaluation #1: Discussed with Dr. Lincoln with Cardiology at [facility]. Accepts patient for transfer to high risk heart failure bed. Discussed patient low BP, reports these patient often live in that area (80-90's), recommends a dose of Bumex 1mg IV. Per report from [facility] patient has history of nonischemic cardiomyopathy and has history of polysubstance abuse. Patient informed of plan and was talking about leaving AMA because he had not had a glass of water and is nauseated. Will give phenergan. He may have some water to wet his mout
[2021-01-06 08:02] LABS: Basophils Absolute Auto 0.1 K/mm3 (0.0-0.1); Basophils Percent Auto 0.6 % (0.2-1.2); Eosinophils Absolute Auto 0.1 K/mm3 (0-0.3); Eosinophils Percent Auto 0.6 % (0-4.4); Hematocrit 43.8 % (42.0-52.0); Hemoglobin 13.9 g/dL (14.0-18.0); Immature Granulocyte Absolute 0.05 K/mm3 (0.00-0.031); Immature Granulocyte Percent A 0.5 % (0-0.5); Lymphocytes Absolute Auto 1.67 K/mm3 (0.9-3.2); Lymphocytes Percent Auto 16.5 % (18.3-44.2); Mean Corpuscular HGB Conc 31.7 g/dl (32-36); Mean Corpuscular Hemoglobin 27.9 pg (26-34); Mean Platelet Volume 11.6 fl (7.4-10.4); Monocytes Absolute Auto 0.6 K/mm3 (0.1-0.6); Monocytes Percent Auto 5.9 % (2.6-8.5); Neutrophils Absolute Auto 7.7 K/mm3 (1.3-6.7); Neutrophils Percent Auto 75.9 % (45.5-73.1); Platelet Count Result 185 k/mm3 (150-375); Red Blood Count 4.98 M/mm3 (4.6-6.20); Red Cell Distribution Width 19.7 % (11.5-14.5); White Blood Count 10.2 K/mm3 (4.5-10.0)
[2021-01-06 08:11] LABS: INR 1.2; Prothrombin Time 14.6 Seconds (11.1-14.7)
[2021-01-06 08:12] LABS: Partial Thromboplastin Time 29.3 SECONDS (22.3-36.8)
[2021-01-06 08:13] LABS: Anion Gap 12 mmol/L (8-16); Blood Urea Nitrogen 27 mg/dL (9-20); Calcium 9.3 mg/dL (8.4-10.2); Carbon Dioxide 25 mmol/L (22-30); Chloride 99 mmol/L (98-107); Estimated CRCL calculation 79 ml/min; Estimated Glomerular Filt Rate > 60; Glucose 110 mg/dL (65-110); Potassium 3.7 mmol/L (3.4-5.0); Sodium 136 mmol/L (137-145)
[2021-01-06 08:49] LABS: NT Pro B Type Natriuretic Pept 7450 pg/mL (5-100); Troponin I 0.081 ng/mL (0.000-0.034)
[2021-01-06] MEDS: SODIUM CHLORIDE 0.9% IV 250 ML (09:35)
[2021-01-06] MEDS: PROMETHAZINE HCL 25 MG/ML AMPUL 12.5 MG IV PUSH (10:11)
[2021-01-06] MEDS: BUMETANIDE INJ 1 MG/4 ML VIAL IV PUSH (10:11)
--- NOTE | 2021-01-06 10:15 | PC.NURSE ---
[facility] access line called and accepted patient at [phone]. States will call back with room number when available.
--- NOTE | 2021-01-06 10:45 | PC.NURSE ---
[facility] accepted transfer to [place] [id number] ETA 11:00 Trip # [id number]
--- NOTE | 2021-01-06 10:50 | PC.NURSE ---
Room assignment given to room 92 bed 2. Call report at [phone].
--- NOTE | 2021-01-06 11:15 | PC.NURSE ---
Patient transferred to [facility] at this time, report given.
[2021-01-06 11:45] LABS: Troponin I 0.068 ng/mL (0.000-0.034)
== END 2021-01-06 11:20 | disposition short-term general hospital (02) ==
PROVIDERS: Emergency Provider Emergency Medicine; PCP Family Medicine
DX: I50.9 Heart failure, unspecified (principal); I42.0 Dilated cardiomyopathy; J45.909 Unspecified asthma, uncomplicated; I25.2 Old myocardial infarction; F32.9 Major depressive disorder, single episode, unspecified; R00.0 Tachycardia, unspecified; I49.3 Ventricular premature depolarization; I45.10 Unspecified right bundle-branch block
CPT/HCPCS: 36415; 71046; 74018; 80048; 83880; 84484; 85025; 85610; 85730; 93005; 96361; 96374; 96375; 99284; 99285; J2550; J7050

== ENCOUNTER 2021-06-16 19:37 | Emergency (ER) | payer OTHER, SELFPAY ==
--- NOTE | ~2021-06-16 | XR_ITS ---
EXAMINATION: XR hand RT min 3V DATE: 06/16/2021 20:00 INDICATION: Right hand pain and swelling. TECHNIQUE: 4 views of right hand were obtained. COMPARISON: None. FINDINGS: Bone alignment is normal. No fracture. Joint spaces are normal. There is a small periarticu lar calcification at first metacarpophalangeal joint. IMPRESSION: 1. No fracture. Reviewed, dictated and finalized at location E. COLLECTOR IMPRESSION: 1. No fracture.
[2021-06-16 19:42] VITALS: BP 102/71; PULSE 96; RESP 16; TEMP 36.2; O2SAT 100
[2021-06-16] MEDS: TETANUS,DIPHTHERIA,AC PERTUSSIS ADULT (0.5 ML) BOOSTRIX IM (20:11)
--- NOTE | 2021-06-16 20:17 | PC.NURSE ---
Lidocaine as ordered not given, override 1% Lidocaine that GEAR ROLLER used as local anesthesia.
--- NOTE | 2021-06-16 20:18 | ED.GENADULT ---
HPI - General Adult General Chief complaint: Wound/Laceration Stated complaint: SPIDER BITE Source: patient Mode of arrival: ambulatory Limitations: no limitations History of Present Illness HPI narrative: Patient presents for evaluation of painful swollen lesion to the third digit of the right hand for the last 2 days. He states he was working out in his shed part of the time of symptom onset. He initially noticed some redness and pain. That evening he noticed a pimple to the affected area. He states the pain is 10 out of 10 in severity, without descriptive quality. He is right-hand dominant. Denies paresthesias. No loss of range of motion. No fever, chills, nausea, vomiting. Date of last tetanus unknown. He is not diabetic. No additional complaints or concerns. Related Data Home Medications Medication Instructions Recorded Confirmed sertraline 50 mg PO DAILY 01/01/21 01/01/21 metoprolol succinate 25 mg PO DAILY 01/06/21 budesonide-formoterol [Symbicort] INHALATION 06/16/21 dapagliflozin [Farxiga] mg 06/16/21 lisinopril 06/16/21 metoclopramide HCl 06/16/21 torsemide mg 06/16/21 Allergies Allergy/AdvReac Type Severity Reaction Status Date / Time pollen extracts Allergy Unknown Verified 06/16/21 19:43 Review of Systems Review of Systems: CONSTITUTIONAL: Denies fever, chills, or sweats. EYES: Denies visual changes, redness, or discharge. ENT: Denies rhinorrhea, congestion, sore throat, or otalgia. CARDIOVASCULAR: Denies chest pain, palpitations, or edema. RESPIRATORY: Denies cough or dyspnea. GASTROINTESTINAL: Denies abdominal pain, nausea, vomiting, or diarrhea. GENITOURINARY: Denies dysuria or hematuria. SKIN: Reports swollen erythematous lesion to the third digit of the right hand MUSCULOSKELETAL: Reports pain to the third digit of the right hand. Denies back pain NEUROLOGIC: Denies headache, numbness, dizziness, or weakness. PSYCHIATRIC: Denies anxiety or depression. [facility] Past Medical History Medical History Acute pulmonary edema Asthma Congestive heart failure Depression Hypertension Non-ST elevation [place] (NSTEMI) Surgical History Surgical History History of permanent cardiac pacemaker placement Family History Family History Mother Brain cancer Cancer of heart Thyroid cancer Lung cancer Colon cancer Smoker Sibling Brain cancer Father Suicide and self-inflicted injury Social History Social History Smoking packs per day: 0.5 Smoking cigarettes per day: 10.0 Smoking status: Current every day smoker Alcohol intake: never Substance use: never Gender identity (if verbalized by the patient): Male Sexual Orientation (if Verbalized by the Patient): Straight or Heterosexual Spiritual care concerns: No Exam Narrative: GENERAL: Well-appearing, well-nourished, and in no acute distress. HEAD: Normocephalic, atraumatic. EYES: PERRLA and EOMI. ENT: Nares clear, no rhinorrhea or epistaxis. Mucous membranes moist. Oropharynx without tonsillar hypertrophy exudate or other lesions. Bilateral TMs pearly amos nonbulging NECK: Supple. No adenopathy or masses. No carotid bruits or JVD CHEST: Clear to auscultation. No respiratory distress. No wheezes rales or rhonchi HEART: Regular rate and rhythm. No murmur heard. Normal peripheral pulses. ABDOMEN: Soft, nontender, nondistended, normal active bowel sounds. EXTREMITIES: Proximal phalanx of third digit of right hand is tender to palpation and there is associated swelling. Normal range of motion. SKIN: There is swelling and erythema noted to the proximal phalanx of the third digit of the right hand. There is a central 3mm area that appears to be an erupted pustule. There is underlying in
== END 2021-06-16 20:26 | disposition home or self-care (01) ==
PROVIDERS: Emergency Provider Nurse Practitioner; PCP Physician Assistant
DX: L02.511 Cutaneous abscess of right hand (principal); Z23 Encounter for immunization; Z87.891 Personal history of nicotine dependence; J45.909 Unspecified asthma, uncomplicated; I11.0 Hypertensive heart disease with heart failure; I50.9 Heart failure, unspecified; I25.2 Old myocardial infarction; F32.A Depression, unspecified
CPT/HCPCS: 26010; 73130; 87070; 87147; 87181; 87186; 87205; 90471; 90715; 99213; G0463

== ENCOUNTER 2024-03-29 00:30 | Emergency (ER) | payer OTHER, MEDICAID, SELFPAY ==
--- NOTE | ~2024-03-29 | XR_ITS ---
EXAMINATION: XR chest 1V portable DATE: 03/29/2024 01:06 INDICATION: Chest pain. Shortness of breath. TECHNIQUE: A single frontal view of the chest was obtained. COMPARISON: Chest 2 views 01/06/2021, chest CT 09/20/2020 FINDINGS: There is no pneumonia, pleural effusion, or pneumothorax. Cardiomegaly is noted. There is a left chest pacer/defibrillator with lead in right ventricle. IMPRESSION: 1. Cardiomegaly. Reviewed, dictated and finalized at location A. ECTIONAL CASE RECORDS SUPERVISOR IMPRESSION: 1. Cardiomegaly.
--- NOTE | 2024-03-29 00:31 | ECG_ITS ---
Test Date: 2024-03-29 00:49:07 Measurements Intervals [place] Rate: 81 P: 57 WA: 172 QRS: 49 QRSD: 107 T: 243 QT: 382 QTc: 446 Interpretive Statements SINUS RHYTHM POSSIBLE LEFT ATRIAL ENLARGEMENT DELAYED PRECORDIAL R/S TRANSITION ST-T WAVE ABNORMALITY IN INF/LAT LEADS- CONSIDER ISCHEMIA BASELINE ARTIFACT- V6 ABNORMAL ECG No previous ECG available for comparison Electronically Signed On 03-29-2024 06:24:34 PRIMER BOXER by Toño Fabian D.O.
[2024-03-29 00:32] VITALS: BP 92/53; PULSE 95; RESP 15; TEMP 36.3; O2SAT 99
[2024-03-29] MEDS: ASPIRIN 81 MG CHEWABLE TABLET 324 MG PO (00:50)
[2024-03-29 01:12] LABS: Basophils Absolute Auto 0.1 K/mm3 (0.0-0.1); Basophils Percent Auto 0.6 % (0.2-1.2); Eosinophils Absolute Auto 0.4 K/mm3 (0-0.3); Eosinophils Percent Auto 3.4 % (0-4.4); Hematocrit 47.1 % (42.0-52.0); Hemoglobin 15.5 g/dL (14.0-18.0); Immature Granulocyte Absolute 0.04 K/mm3 (0.00-0.031); Immature Granulocyte Percent A 0.4 % (0-0.5); Mean Corpuscular HGB Conc 32.9 g/dl (32-36); Mean Corpuscular Hemoglobin 29.2 pg (26-34); Mean Corpuscular Volume 88.7 fl (80-100); Mean Platelet Volume 10.7 fl (7.4-10.4); Monocytes Absolute Auto 0.8 K/mm3 (0.1-0.6); Monocytes Percent Auto 6.9 % (2.6-8.5); Neutrophils Absolute Auto 7.3 K/mm3 (1.3-6.7); Neutrophils Percent Auto 66.7 % (45.5-73.1); Platelet Count Result 152 k/mm3 (150-375); Red Blood Count 5.31 M/mm3 (4.6-6.20); Red Cell Distribution Width 13.7 % (11.5-14.5); White Blood Count 10.9 K/mm3 (4.5-10.0)
[2024-03-29 01:24] LABS: Prothrombin Time 14.1 Seconds (11.1-14.7)
[2024-03-29 01:25] LABS: Partial Thromboplastin Time 26.3 Seconds (22.3-36.8)
[2024-03-29 01:31] LABS: Alanine Aminotransferase 13 U/L (6-50); Alkaline Phosphatase 70 U/L (38-126); Anion Gap 6 mmol/L (4-12); Aspartate Amino Transferase 22 U/L (17-59); Bilirubin,Total 0.9 mg/dL (0.2-1.3); Blood Urea Nitrogen 14 mg/dL (9-20); Calcium 9.3 mg/dL (8.4-10.2); Carbon Dioxide 28 mmol/L (22-30); Chloride 103 mmol/L (98-107); Estimated CRCL calculation 79 ml/min; Estimated Glomerular Filt Rate > 60; Glucose 114 mg/dL (65-110); Lipase 58 U/L (23-300); Potassium 3.9 mmol/L (3.4-5.0); Sodium 137 mmol/L (137-145)
[2024-03-29 01:34] LABS: Troponin I 0.017 ng/mL (0.000-0.034)
[2024-03-29] MEDS: LACTATED RINGERS 1,000 ML 999 ML IV CONT (02:43)
--- NOTE | 2024-03-29 03:02 | ED_ITS ---
HPI - Chest Pain General Chief Complaint: Chest Pain Stated Complaint: SOB, chest pain Time Seen by Provider: 03/29/24 02:25 History of Present Illness HPI narrative: 58-year-old male with past medical history permanent pacemaker, congestive heart failure, asthma and hypertension. Today patient presents to the emergency room with chief complaint of some chest pain difficulty in breathing as well as friedman that started appearing on his wrists bilaterally. He has had some pustules that formed over last few days on the dorsum of his left and right hand. He has had something similar like this happened to him previously on the finger tip and was found to be MRSA. Denies any injection drug use, injuries, recent illnesses. Endorses chest pain on and off for last 3 days but no com plaints of pain with breathing. denies any nausea, vomiting, headache, vision changes, abdominal pain, back pain. Was previously in his normal state of health. Related Data Home Medications Medication Instructions Recorded Confirmed sertraline 50 mg tablet 50 mg PO DAILY 01/01/21 01/01/21 metoprolol succinate 25 mg capsule 25 mg PO DAILY 01/06/21 sprinkle, ext. release 24 hr budesonide-formoterol HFA 80 inhalation 06/16/21 mcg-4.5 mcg/actuation aerosol inhaler (Symbicort) dapagliflozin propanediol 10 mg mg 06/16/21 tablet (Farxiga) lisinopril 2.5 mg tablet 06/16/21 metoclopramide HCl 10 mg tablet 06/16/21 torsemide 20 mg tablet mg 06/16/21 Allergies Allergy/AdvReac Type Severity Reaction Status Date / Time pollen extracts Allergy Unknown Verified 06/16/21 19:43 Review of Systems Review of Systems: As reviewed above in HPI [facility] Past Medical History Medical History Acute pulmonary edema Asthma Congestive heart failure Depression Hypertension Non-ST elevation [place] (NSTEMI) Surgical History Surgical History History of permanent cardiac pacemaker placement Family History Family History Mother Brain cancer Cancer of heart Thyroid cancer Lung cancer Colon cancer Smoker Sibling Brain cancer Father Suicide and self-inflicted injury Social History Social History Smoking packs per day: 0.5 Smoking cigarettes per day: 10.0 Smoking status: Current every day smoker Alcohol intake: never Substance use: never Gender identity (if verbalized by the patient): Male Sexual Orientation (if Verbalized by the Patient): Straight or Heterosexual Spiritual care concerns: No Exam Narrative: GENERAL: [Well-appearing, well-nourished, and in no acute distress.] HEAD: [Normocephalic, atraumatic.] EYES: [PERRLA and EOMI.] ENT: Nares clear, no rhinorrhea or epistaxis. Mucous membranes moist. NECK: Supple. CHEST: [Clear to auscultation. No respiratory distress.] HEART: [Regular rate and rhythm]. No murmur heard. [Normal peripheral pulses.] ABDOMEN: [Soft, nondistended], [nontender], [No rigidity or guarding] EXTREMITIES: the bilateral dorsum of the hands have some pustule like for mations with some surrounding erythema but no significant drainage. Left-sided his 3 isolated pustules on the dorsum of the wrist, right-sided has 1 isolated pustular the dorsum of the wrist. Range of motion is not limited, no significant warmth to the area. Mild scabbing over the top of the pustule but no area of fluctuance or significant abscess formation that would be amenable to drainage. SKIN: Warm, dry, no rash. NEURO: [No focal deficits]. Alert and oriented [x3.] PSYCH: [Normal mood and affect.] Course Vital Signs Vital signs: Vital Signs Temperature 36.3 C L 03/29/24 00:32 Pulse Rate 95 03/29/24 00:32 Respiratory Rate 15 03/29/24 00:32 Blood Pressure 92/53 L 03/29/24 00:32 Pulse Oximetry 99 03/29/24 00:32 Oxygen Delivery Room Air 03/29/24 00:32 Temperature 36.3 C L 03/29/24 00:32 Pulse Rate 95 03/29/24 00:32 Respiratory Rate 15 03/29/24 00:32 Blood Pressure 92/53 L 03/29/24 00:32 Pulse Oximetry 99 03/29/24 00:32 Oxygen Delivery Room Air 03/29/24 00:32 MDM - Chest Pain MDM Narrative Medical decision making narrative: 58-year-old male with cardiac history including permanent pacemaker, congestive heart rate, hypertension. He also had previous MRSA infection of the finger tip. today presents to the emergency department with chief complaint of some mild chest discomfort and difficulty breathing over last 3 days. Waxing and waning in nature, not associated with any movement or deep inhalation. He is also mostly concerned about the pustules that started forming on the dorsum of his bilateral wrists. Denies any injuries or drug use. Has had something like this happened in the past and was found to be MRSA in the finger. He otherwise appears overall well not any acute distress. Slightly low on the blood pressure at 92/53 but no tachycardia. Does have some mild dryness to his mucous membranes. No fever no hypoxia and saturating well on room air. No significant fluctuance or tenderness with palpation of the pustules on the hands and the did not appear amenable to incision and drainage based on their size at this time. Given his history of MRSA on review of the EMR with similar infection in the past elected to order an IV dose of clindamycin after reviewing the susceptibilities of the previous infection. Cardiac workup was ordered gi gerald his history including a chest x-ray EKG, troponin and laboratory assessments. He was given a L of fluid bolus for his blood pressure. Prior to completion of patient's workup he elected to sign out against medical advice as he was dissatisfied with the level of care in the emergency department and was taken aback at insulted that we requested a urinalysis and urine sample. Patient did receive his therapy so far including clindamycin for his wounds. risks and benefits were discussed with the patient about leaving against medical advice without completion of his workup and potential possibilities for deterioration or disability and patient refused to sign the AMA paperwork before leaving. Medical Records Data Attestation: I reviewed the patient's medical records. Lab Data Attestation: I reviewed the patient's lab results. 03/29/24 00:58 03/29/24 00:58 Labs: Lab Results 03/29/24 Range/Units 00:58 WBC 10.9 H (4.5-10.0) K/mm3 RBC 5.31 (4.6-6.20) M/mm3 Hgb 15.5 (14.0-18.0) g/dL Hct 47.1 (42.0-52.0) % MCV 88.7 (80-100) fl MCH 29.2 (26-34) pg MCHC 32.9 (32-36) g/dl RDW 13.7 (11.5-14.5) % Plt Count 152 (150-375) k/mm3 MPV 10.7 H (7.4-10.4) fl Immature Gran % (Auto) 0.4 (0-0.5) % Neut % (Auto) 66.7 (45.5-73.1) % Lymph % (Auto) 22.0 (18.3-44.2) % [place] % (Auto) 6.9 (2.6-8.5) % Eos % (Auto) 3.4 (0-4.4) % Baso % (Auto) 0.6 (0.2-1.2) % Lymph # (Auto) 2.40 (0.9-3.2) K/mm3 [place] # (Auto) 0.8 H (0.1-0.6) K/mm3 Eos # (Auto) 0.4 H (0-0.3) K/mm3 Baso # (Auto) 0.1 (0.0-0.1) K/mm3 Abs Immat Gran (auto) 0.04 H (0.00-0.031) K/mm3 Absolute Neuts (auto) 7.3 H (1.3-6.7) K/mm3 Absolute Nucleated RBC 0.000 (0.0-0.012) K/mm3 Nucleated RBC % 0.0 (0.0-0.2) % PT 14.1 (11.1-14.7) Seconds INR 1.0 APTT 26.3 (22.3-36.8) Seconds Sodium 137 (137-145) mmol/L Potassium 3.9 (3.4-5.0) mmol/L Chloride 103 (98-107) mmol/L Carbon Dioxide 28 (22-30) mmol/L Anion Gap 6 (4-12) mmol/L BUN 14 D (9-20) mg/dL Creatinine 1.00 (0.7-1.3) mg/dL Estim Creat Clear Calc 79 ml/min Estimated GFR > 60 (59 - ) Glucose 114 H (65-110) mg/dL Calcium 9.3 (8.4-10.2) mg/dL Total Bilirubin 0.9 (0.2-1.3) mg/dL AST 22 (17-59) U/L ALT 13 (6-50) U/L Alkaline Phosphatase 70 (38-126) U/L Troponin I 0.017 (0.000-0.034) ng/mL Total Protein 8.0 (6.3-8.2) g/dL Albumin 4.0 (3.5-5.1) g/dL Lipase 58 (23-300) U/L Imaging Data Attestation: I personally reviewed and interpreted this imaging study as follows: Radiologist's impression: Impressions Chest X-Ray 03/29/24 05:59 IMPRESSION: 1. Cardiomegaly. Discharge Plan Discharge Clinical Impression: Chest pain, Pustular lesion, History of MRSA infection Patient Disposition: Left Against Medical Advice Condition: Guarded Prognosis Prescriptions: No Action sertraline 50 mg tablet 50 mg PO DAILY spironolactone 25 mg tablet 25 mg PO DAILY Qty: 30 1RF torsemide 20 mg tablet lisinopril 2.5 mg tablet metoclopramide HCl 10 mg tablet Farxiga 10 mg tablet budesonide-formoterol [Symbicort] 80-4.5 mcg/actuation HFA aerosol inhaler INHALATION cephalexin 500 mg capsule 500 mg PO Q6H Qty: 40 0RF sulfamethoxazole-trimethoprim [Bactrim DS] 800-160 mg tablet 1 tablet PO Q12H Qty: 20 0RF hydrocodone-acetaminophen 5-325 mg tablet 1 - 2 tablet PO Q6H PRN (Reason: pain) Qty: 15 0RF metoprolol succinate 25 mg Capsule,Sprinkle,Er 24hr 25 mg PO DAILY Follow-up/Referrals: Bry,PATIENCE Downing [Primary Care Provider] -
[2024-03-29] MEDS: CLINDAMYCIN 600 MG/D5W 50 ML 600 MG/50 ML PIGGYBACK 100 MG IVPB (04:13)
--- NOTE | 2024-03-29 04:27 | PC.NURSE ---
this RN and 2 techs have been in the room asking this patient for urine. Patient received a liter of fluids. Patient states that he has been asked to give urine too many times. Patient asked for AMA. When RN brought forms into patients room. patient refused to sign. While RN was taking out patients IV patient states I am going to leave and just pass out . Patient informed that we are here to help the patient. Patient continues to refuse any care. IV removed.
== END 2024-03-29 04:32 | disposition left against medical advice (07) ==
PROVIDERS: Emergency Provider Student in an Organized Health Care Education/Training Program; PCP Physician Assistant
DX: R07.9 Chest pain, unspecified (principal); L08.9 Local infection of the skin and subcutaneous tissue, unspecified; Z86.14 Personal history of Methicillin resistant Staphylococcus aureus infection; F17.210 Nicotine dependence, cigarettes, uncomplicated; J45.909 Unspecified asthma, uncomplicated; I11.0 Hypertensive heart disease with heart failure; I50.9 Heart failure, unspecified; F32.A Depression, unspecified; I25.2 Old myocardial infarction
CPT/HCPCS: 36415; 71045; 80053; 83690; 84484; 85025; 85610; 85730; 93005; 96361; 96365; 99284; A9270; J7120

== ENCOUNTER 2024-03-29 11:04 | Emergency (ER) | payer OTHER, MEDICAID, SELFPAY ==
[2024-03-29 11:14] VITALS: BP 98/55; PULSE 74; RESP 16; TEMP 36.4; O2SAT 100
--- NOTE | 2024-03-29 11:28 | PCCCNOTE ---
Pt seen over night in ER and hoping to be seen again. He states he is a homeless and without transportation. He was given resources for homeless jail, housing, services and informed that if he needs transportation to a facility to request from the staff and we can provide tokens. He voiced understanding
--- NOTE | 2024-03-29 13:34 | ED_ITS ---
HPI - General Adult General Chief complaint: Unspecified Stated complaint: not feeling better Time Seen by Provider: 03/29/24 13:25 History of Present Illness HPI narrative: Pt presents today after signing out ama last night. Pt today complains of anterior CP that is brief in nature lasting a few seconds and resolving on own. Pt says he has an AICD placed at [place]. Pt also complains of pain in his left wrist and has bumps on left wrist. Related Data Home Medications Medication Instructions Recorded Confirmed sertraline 50 mg tablet 50 mg PO DAILY 01/01/21 01/01/21 metoprolol succinate 25 mg capsule 25 mg PO DAILY 01/06/21 sprinkle, ext. release 24 hr budesonide-formoterol HFA 80 inhalation 06/16/21 mcg-4.5 mcg/actuation aerosol inhaler (Symbicort) dapagliflozin propanediol 10 mg mg 06/16/21 tablet (Farxiga) lisinopril 2.5 mg tablet 06/16/21 metoclopramide HCl 10 mg tablet 06/16/21 torsemide 20 mg tablet mg 06/16/21 Allergies Allergy/AdvReac Type Severity Reaction Status Date / Time pollen extracts Allergy Unknown Verified 06/16/21 19:43 Review of Systems Review of Systems: All systems reviewed & are unremarkable except as noted in HPI and below PMFSH Past Medical History Medical History Acute pulmonary edema Asthma Congestive heart failure Depression Hypertension Non-ST elevation [place] (NSTEMI) Surgical History Surgical History History of permanent cardiac pacemaker placement Family History Family History Mother Brain cancer Cancer of heart Thyroid cancer Lung cancer Colon cancer Smoker Sibling Brain cancer Father Suicide and self-inflicted injury Social History Social History Smoking packs per day: 0.5 Smoking cigarettes per day: 10.0 Smoking status: Current every day smoker Alcohol intake: never Substance use: never Gender identity (if verbalized by the patient): Male Sexual Orientation (if Verbalized by the Patient): Straight or Heterosexual Spiritual care concerns: No Exam Const: General: cooperative and no acute distress (sleeping when I entered room had to wake up for exam) Chest: Chest palpation & inspection: normal inspection of the chest Resp: Effort & Inspection: normal respiratory effort Auscultation: clear to auscultation bilaterally Cardio: Rate: regular rate Rhythm: regular rhythm GI: GI Palp: No abdominal tenderness Percussion: Yes normal to percussion Auscultation: normal bowel sounds Skin: Lesions: other (3 areas of folliculitis to left wrist) Neuro: General: patient oriented x3 Cranial nerves: Yes CN's II-XII intact bilaterally Psych: Appearance: grossly normal and disheveled Mental Status: mental status grossly normal Speech and movement: Normal speech and movement present Affect: normal affect Course Vital Signs Vital signs: Vital Signs Temperature 97.6 F 03/29/24 11:14 Pulse Rate 74 03/29/24 11:14 Respiratory Rate 16 03/29/24 11:14 Blood Pressure 98/55 L 03/29/24 11:14 Pulse Oximetry 100 03/29/24 11:14 Oxygen Delivery Room Air 03/29/24 11:14 Temperature 97.6 F 03/29/24 11:14 Pulse Rate 67 03/29/24 15:00 Respiratory Rate 16 03/29/24 15:00 Blood Pressure 104/72 03/29/24 15:00 Pulse Oximetry 100 03/29/24 15:00 Oxygen Delivery Room Air 03/29/24 11:14 Medical Decision Making MDM Narrative Medical decision making narrative: Pt describes brief episodes of sharp CP which do not sound cardiac but given history will get cardiac work up and ekg. did not complain of this last night. Pt also has folliculitis of left wrist. Vital Signs Vital Signs: Vital Signs Temperature 97.6 F 03/29/24 11:14 Pulse Rate 74 03/29/24 11:14 Respiratory Rate 16 03/29/24 11:14 Blood Pressure 98/55 L 03/29/24 11:14 Pulse Oximetry 100 03/29/24 11:14 Oxygen Delivery Room Air 03/29/24 11:14 Temperature 97.6 F 03/29/24 11:14 Pulse Rate 67 03/29/24 15:00 Respiratory Rate 16 03/29/24 15:00 Blood Pressure 104/72 03/29/24 15:00 Pulse Oximetry 100 03/29/24 15:00 Oxygen Delivery Room Air 03/29/24 11:14 Lab Data 03/29/24 13:59 03/29/24 13:59 Labs: Lab Results 03/29/24 Range/Units 13:59 WBC 9.2 (4.5-10.0) K/mm3 RBC 5.24 (4.6-6.20) M/mm3 Hgb 15.5 (14.0-18.0) g/dL Hct 47.4 (42.0-52.0) % MCV 90.5 (80-100) fl MCH 29.6 (26-34) pg MCHC 32.7 (32-36) g/dl RDW 13.6 (11.5-14.5) % Plt Count 134 L (150-375) k/mm3 MPV 10.8 H (7.4-10.4) fl Immature Gran % (Auto) 0.3 (0-0.5) % Neut % (Auto) 57.0 (45.5-73.1) % Lymph % (Auto) 29.6 (18.3-44.2) % [place] % (Auto) 8.6 H (2.6-8.5) % Eos % (Auto) 3.8 (0-4.4) % Baso % (Auto) 0.7 (0.2-1.2) % Lymph # (Auto) 2.71 (0.9-3.2) K/mm3 [place] # (Auto) 0.8 H (0.1-0.6) K/mm3 Eos # (Auto) 0.4 H (0-0.3) K/mm3 Baso # (Auto) 0.1 (0.0-0.1) K/mm3 Abs Immat Gran (auto) 0.03 (0.00-0.031) K/mm3 Absolute Neuts (auto) 5.2 (1.3-6.7) K/mm3 Absolute Nucleated RBC 0.000 (0.0-0.012) K/mm3 Nucleated RBC % 0.0 (0.0-0.2) % % Immature Plt Fraction 4.6 (0.9-11.2) % PT 14.0 (11.1-14.7) Seconds INR 1.1 APTT 27.8 (22.3-36.8) Seconds Sodium 137 (137-145) mmol/L Potassium 5.0 (3.4-5.0) mmol/L Chloride 102 (98-107) mmol/L Carbon Dioxide 30 (22-30) mmol/L Anion Gap 5 (4-12) mmol/L BUN 16 (9-20) mg/dL Creatinine 0.80 (0.7-1.3) mg/dL Estim Creat Clear Calc 97 ml/min Estimated GFR > 60 (59 - ) Glucose 90 (65-110) mg/dL Calcium 9.8 (8.4-10.2) mg/dL Total Bilirubin 0.9 (0.2-1.3) mg/dL AST 20 (17-59) U/L ALT 11 (6-50) U/L Alkaline Phosphatase 68 (38-126) U/L Troponin I 0.016 (0.000-0.034) ng/mL NT-Pro-B Natriuret Pep 487 H (19.9-100) pg/mL Total Protein 8.0 (6.3-8.2) g/dL Albumin 4.1 (3.5-5.1) g/dL Discharge Plan Discharge Clinical Impression: Folliculitis, Atypical chest pain Patient Disposition: Home, Self-Care Condition: Stable Instructions: Antibiotic Form, Chest Pain (DC), Folliculitis (ED) Prescriptions: New tetracycline 500 mg tablet 500 mg PO Q12H Qty: 20 0RF No Action sertraline 50 mg tablet 50 mg PO DAILY spironolactone 25 mg tablet 25 mg PO DAILY Qty: 30 1RF torsemide 20 mg tablet lisinopril 2.5 mg tablet metoclopramide HCl 10 mg tablet Farxiga 10 mg tablet budesonide-formoterol [Symbicort] 80-4.5 mcg/actuation HFA aerosol inhaler INHALATION cephalexin 500 mg capsule 500 mg PO Q6H Qty: 40 0RF sulfamethoxazole-trimethoprim [Bactrim DS] 800-160 mg tablet 1 tablet PO Q12H Qty: 20 0RF hydrocodone-acetaminophen 5-325 mg tablet 1 - 2 tablet PO Q6H PRN (Reason: pain) Qty: 15 0RF metoprolol succinate 25 mg Capsule,Sprinkle,Er 24hr 25 mg PO DAILY Follow-up/Referrals: Bry,PATIENCE Downing [Primary Care Provider] - Quality HEART score for chest pain patients History: slightly suspicious ECG: normal Age: > 45 and < 65 years Risk factors: 1 or 2 risk factors Troponin: < or = to 1x normal limit Heart score: 2
[2024-03-29 13:40] VITALS: BP 112/67; PULSE 60; RESP 16; O2SAT 98
[2024-03-29 14:12] LABS: Basophils Absolute Auto 0.1 K/mm3 (0.0-0.1); Basophils Percent Auto 0.7 % (0.2-1.2); Eosinophils Absolute Auto 0.4 K/mm3 (0-0.3); Eosinophils Percent Auto 3.8 % (0-4.4); Hematocrit 47.4 % (42.0-52.0); Hemoglobin 15.5 g/dL (14.0-18.0); Immature Granulocyte Absolute 0.03 K/mm3 (0.00-0.031); Immature Granulocyte Percent A 0.3 % (0-0.5); Immature Platelet Fraction Pct 4.6 % (0.9-11.2); Lymphocytes Absolute Auto 2.71 K/mm3 (0.9-3.2); Lymphocytes Percent Auto 29.6 % (18.3-44.2); Mean Corpuscular HGB Conc 32.7 g/dl (32-36); Mean Corpuscular Hemoglobin 29.6 pg (26-34); Mean Corpuscular Volume 90.5 fl (80-100); Mean Platelet Volume 10.8 fl (7.4-10.4); Monocytes Absolute Auto 0.8 K/mm3 (0.1-0.6); Monocytes Percent Auto 8.6 % (2.6-8.5); Neutrophils Absolute Auto 5.2 K/mm3 (1.3-6.7); Platelet Count Result 134 k/mm3 (150-375); Red Blood Count 5.24 M/mm3 (4.6-6.20); Red Cell Distribution Width 13.6 % (11.5-14.5); White Blood Count 9.2 K/mm3 (4.5-10.0)
[2024-03-29 14:21] LABS: INR 1.1; Partial Thromboplastin Time 27.8 Seconds (22.3-36.8)
[2024-03-29 14:23] LABS: Alanine Aminotransferase 11 U/L (6-50); Albumin Level 4.1 g/dL (3.5-5.1); Alkaline Phosphatase 68 U/L (38-126); Anion Gap 5 mmol/L (4-12); Aspartate Amino Transferase 20 U/L (17-59); Bilirubin,Total 0.9 mg/dL (0.2-1.3); Blood Urea Nitrogen 16 mg/dL (9-20); Calcium 9.8 mg/dL (8.4-10.2); Carbon Dioxide 30 mmol/L (22-30); Chloride 102 mmol/L (98-107); Estimated CRCL calculation 97 ml/min; Estimated Glomerular Filt Rate > 60; Glucose 90 mg/dL (65-110); Sodium 137 mmol/L (137-145)
[2024-03-29 14:33] LABS: NT Pro B Type Natriuretic Pept 487 pg/mL (19.9-100); Troponin I 0.016 ng/mL (0.000-0.034)
--- NOTE | 2024-03-29 14:59 | PC.NURSE ---
Pt c/o hunger. made aware. Dr. Amin states pt can eat. Pt provided w turkey sandwich and drink.
[2024-03-29 15:00] VITALS: BP 104/72; PULSE 67; RESP 16; O2SAT 100
== END 2024-03-29 15:35 | disposition home or self-care (01) ==
LOC: ANHED 15:24
PROVIDERS: Emergency Provider Emergency Medicine; PCP Physician Assistant
DX: L73.9 Follicular disorder, unspecified (principal); R07.89 Other chest pain; J45.909 Unspecified asthma, uncomplicated; I11.0 Hypertensive heart disease with heart failure; I50.9 Heart failure, unspecified; F32.A Depression, unspecified; I25.2 Old myocardial infarction
CPT/HCPCS: 36415; 80053; 83880; 84484; 85025; 85055; 85610; 85730; 99284